=== PATIENT | male | born 1965 | race Caucasian/White ===

== ENCOUNTER 2024-06-27 11:34 | Outpatient (CLI) | payer MEDICARE, SELFPAY ==
[2024-06-27 12:41] LABS: Add Urine Microscopic? NO; Appearance Urine Clear (Clear); Bilirubin Urine Negative (Negative); Blood Urine Negative (Negative); Color Urine Yellow (Yellow); Glucose Urine UA 3+ mg/dL (Negative); Ketones Urine Negative (Negative); Leukocyte Esterase Ur Negative LEU/UL (Negative); Nitrate Urine Negative (Negative); Protein Urine Negative (Negative); Specific Grav Ur 1.018 (1.001-1.035); Urobilinogen Urine 0.2 mg/dL (<2.0); pH Urine 6.5 (5.0-9.0)
[2024-06-27 12:43] LABS: Hematocrit 51.8 % (42.0-52.0); Hemoglobin 17.2 g/dL (14.0-18.0); Mean Corpuscular HGB Conc 33.2 g/dl (32-36); Mean Corpuscular Hemoglobin 32.3 pg (26-34); Mean Corpuscular Volume 97.4 fl (80-100); Mean Platelet Volume 8.6 fl (7.4-10.4); Platelet Count Result 269 k/mm3 (150-375); Red Blood Count 5.32 M/mm3 (4.6-6.20); Red Cell Distribution Width 12.7 % (11.5-14.5); White Blood Count 8.5 K/mm3 (4.5-10.0)
[2024-06-27 12:55] LABS: Alanine Aminotransferase 34 U/L (6-50); Albumin Level 4.9 g/dL (3.5-5.1); Alkaline Phosphatase 90 U/L (38-126); Anion Gap 9 mmol/L (4-12); Aspartate Amino Transferase 27 U/L (17-59); Bilirubin,Total 0.8 mg/dL (0.2-1.3); Blood Urea Nitrogen 22 mg/dL (9-20); Calcium 9.4 mg/dL (8.4-10.2); Carbon Dioxide 26 mmol/L (22-30); Chloride 103 mmol/L (98-107); Cholesterol 144 mg/dL (0-200); Estimated Glomerular Filt Rate > 60; Glucose 108 mg/dL (65-110); HDL Direct 61 mg/dL; Potassium 4.2 mmol/L (3.4-5.0); Sodium 138 mmol/L (137-145); Triglycerides 155 mg/dL (<150); Uric Acid 3.1 mg/dL (3.5-8.5)
[2024-06-27 12:56] LABS: Hemoglobin A1C 5.8 % (<5.7)
--- OUTSIDE RECORDS SUMMARY | 2024-06-27 13:04 | XMS_ITS | Clinical Summary ---
Author Organization [facility] Address [address] [place] [address] Care Team Providers Care Mechanical Maintenance Name Role Phone Regino Rodgers MD Primary Care Provider Allergies Active Allergy Reactions Criticality Noted Date Comments Lisinopril Cough Low 03/04/2014 Medications amLODIPine (NORVASC) 10 mg tablet 2 Active allopurinoL (ZYLOPRIM) 100 mg tablet 2 Active atorvastatin (LIPITOR) 40 mg tablet atorvastatin 40 mg tablet TAKE 1 TABLET BY MOUTH DAILY Active aspirin (JESSICA CHEWABLE) 81 mg Tablet, Chewable aspirin 81 mg chewable tablet GLOVE MAKER 1 T PO QD Active diphenhydrAMINE -acetaminophen (Tylenol PM Extra Strength) 25-500 mg Tablet Active losartan (COZAAR) 50 mg tablet 100 mg. 2 Active hydrOXYzine pamoate (VISTARIL) 50 mg capsule hydroxyzine pamoate 50 mg capsule Active multivitamins-m inerals-lutein (Multivitamin 50 Plus) Tablet Acti ve pantoprazole (PROTONIX) 20 mg Tablet, Delayed Release (E.C.) pantoprazole 20 mg tablet,delayed release TAKE 1 TABLET BY MOUTH DAILY NEEDED 9 Active clopidogreL (PLAVIX) 75 mg Tablet clopidogrel 75 mg tablet TAKE 1 TABLET BY MOUTH DAILY 6 Active gabapentin (NEURONTIN) 300 mg capsule gabapentin 300 mg capsule 0 Active citalopram (CeleXA) 40 mg tablet citalopram 40 mg tablet Active Vascepa 1 gram Capsule 2 Active Vitamin D2 1,250 mcg (50,000 unit) capsule 2 Active fluticasone propionate (FLONASE) 50 mcg/spray Satartia, Suspension nasal inhaler Flonase Allergy Relief 50 mcg/actuation nasal spray,suspension Satartia 1 spray every day by intranasal route. 0 Active Active Problems Problem Noted Date Diagnosed Date Erythrocytosis 07/21/2021 Family History Medical History Relation Name Comments Multiple myeloma Father Relation Name Status Comments Brother 1 Alive Brother 2 Alive Father Mother Alive Sister Alive Social History Tobacco Use Types Packs/Day Years Used Date Smoking Tobacco: Every Day Cigarettes Smokeless Tobacco: Never Tobacco Cessation:Ready to Q uit: Not Asked; Counseling Given: Not Answered Alcohol Use Standard Drinks/Week Comments Yes 0 (1 standard drink = 0.6 oz pur e alcohol) Sex and Gender Information Value Date Recorded Sex Assigned at Not on file 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 Gender Identity Not on file Sexual Orientation Not on file Last Filed Vital Signs Vital Sign Reading Time Taken Comments Blood Pressure 175/91 07/12/2022 3:03 PM CDT Pulse 102 07/12/2022 3:01 PM CDT Temperature 36.7 C (98 F) 07/12/2022 3:01 PM CDT Respiratory Rate 12 07/12/2022 3:01 PM CDT Oxygen Saturation 97% 07/12/2022 3:01 PM CDT Inhaled Oxygen Concentration - - Weight 109.1 kg (240 lb 9.6 oz) 07/12/2022 3:01 PM CDT Height 180.3 cm (5' 11 ) 01/12/2022 3:25 PM CDT Body Mass Index 33.56 01/12/2022 3:25 PM CDT Plan of Treatment Health Maintenance Due Date Last Done Comments PNEUMOCOCCAL VACCINE 0-49 YEARS (1 of 2 - PCV) 972 DIABETES ANNUAL FOOT EXAM 05/15/1983 DIABETES ANNUAL RETINAL EXAM 05/15/1983 DIABETES HBA1C Q 6 MONTHS 05/15/1983 DIABETES MICROALBUMIN ANNUAL SCREEN 05/15/1983 DTAP/TDAP/TD VACCINES (1 - Tdap) 1984 HEPATITIS B VACCINES (1 of 3 - 19+ 3-dose series) 05/1984 COLORECTAL SCREENING 2010 Colorectal Cancer Screening 2010 FIT-DNA Q 3 years 2010 FIT/FOBT Q 1 year 2010 Flex Sig/CT Colonography Q 5 years 2010 ZOSTER VACCINE (1 of 2) 05/15/2015 LDL CHOLESTEROL ANNUAL 07/14/2022 07/14/2021 INFLUENZA VACCINE (#1) 2023 01/31/2021 Procedures Procedure Name Priority Date/Time Associated Diagnosis Comments LIPID PANEL Routine 07/14/2021 from Last 3 Months or Most Recently Relevant to Health Maintenance Results * LIPID PANEL (07/14/2021) Blood us Abstract Provider CHEMISTRY ORDERABLES Final Res ult from Last 3 Months or Most Recently Relevant to Health Maintenance Insurance [address] [address] Care Teams Mechanical Maintenance Relationship Specialty Start Date End Date Regino Rodgers MD PCP - General Internal Medicine 06/11/21
--- OUTSIDE RECORDS SUMMARY | 2024-06-27 13:04 | XMS_ITS ---
Author Organization [facility] Address [address] [place] [address] Care Team Providers Care Pottery Decorator Name Role Phone MendezDhirajIldefonso Unavailable [phone] Encounters Encounter Location Date Provider Diagnosis [facility] [place] [facility] [address] [place] [address] 03/28/2024 Ildefonso Mendez PLAN OF TREATMENT Next Appt Details Provider Name:Ildefonso Mendez , 07/06/2024 04:30:00 PM, [address], [facility], Progress Notes * YUSUF KEENANDOB:05/1965 (59 yo M)Acc No.[id number]:03/28/2024 Progress Notes Patient: YUSUF KEENAN Provider: MD AMINA, Soy.Antonio.C.P, F.A.S.N. :1965 Age:58 Y Sex:Male Date:03/28/2024 Address:[address] [address] Subjective: * Chief Complaints: * * Medical History: Objective: Assessment: Plan: * Treatment: * Billing Information: * Visit Code: * Procedure Codes: * Sign off status: Pending * Provider: MD AMINA, RiteshC.P, F.A.S.N. Date: 03/28/2024
--- OUTSIDE RECORDS SUMMARY | 2024-06-27 13:05 | XMS_ITS ---
Author Organization [facility] Address [address] [facility] [address] [facility] [address] [place] [address] Care Team Providers Care Field Administrator Name Role Phone Ildefonso Mendez Unavailable [phone] MEDICATIONS Medication SIG (Take, Route, Frequency, Duration) Notes Start Date End Date Status Losartan Potassium 100 MG TAKE 1 TABLET BY MOUTH DAILY for 100 days Active Vitamin D (Ergocalciferol) 1.25 MG (26781 UT) TAKE 1 CAPSULE BY MOUTH WEEKLY for 100 Active Allopurinol 100 MG TAKE 1 TABLET BY TAMMY TH ONCE DAILY for 100 Active Encounters Encounter Location Date Provider Diagnosis [place] [facility] [address] [facility] [address] [place] [address] 08/17/2023 Ildefonso Mendez Chronic kidney disea se, stage 3a N18.31 ; Essential hypertension I10 ; Hypercalcemia E83.52 ; Renal osteodystrophy N25.0 ; Secondary hyperparathyroidism, not elsewhere classified E21.1 and Hyperuricemia without signs of inflammatory arthritis and tophaceous disease E79.0 ASSESSMENTS Encounter Date Diagnosis Assessment Notes Treatment Notes Treatment Clinical Notes Section Notes 08/17/2023 Chronic kidney disease, stage 3a (ICD-10 - N18.31) 08/17/2023 Essential hypertension (ICD-10 - I10) 08/17/2023 Hypercalcemia (ICD-10 - E83.52) 08/17/2023 Renal osteodystrophy (ICD-10 - N25.0) 08/17/2023 Secondary hyperparathyroidism , not elsewhere classified (ICD-10 - E21.1) 08/17/2023 Hyperuricemia without signs of inflammatory arthritis and tophaceous disease (ICD-10 - E79.0) PLAN OF TREATMENT Next Appt Details Provider Name:Ildefonso Mendez , 07/06/2024 04:30:00 PM, [address] [facility], [facility] [address], [place], [address], Progress Notes * YUSUF KEENANDOB:05/1965 (59 yo M)Acc No.[id number]:08/17/2023 Progress Notes Patient: YUSUF KEENAN Provider: MD AMINA, Soy.Antonio.C.P, F.A.S.N. :1965 Age:58 Y Sex:Male Date:08/17/2023 Address:[address] [address] Subjective: * Chief Complaints: * * Medical History: * Medications: Taking Allopurinol 100 MG Tablet TAKE 1 TABLET BY MOUTH ONCE DAILY , Taking Losartan Potassium 100 MG Tablet TAKE 1 TABLET BY MOUTH DAILY , Taking Vitamin D (Ergocalciferol) 1.25 MG (03541 UT) Capsule TAKE 1 CAPSULE BY MOUTH WEEKLY Objective: Assessment: * Assessment: 1. Chronic kidney disease, stage 3a - N18.31 (Primary) 2. Essential hypertension - I10 3. Hypercalcemia - E83.52 4. Renal osteodystrophy - N25.0 5. Secondary hyperparathyroidism, not elsewhere classified - E21.1 6. Hyperuricemia without signs of inflammatory arthritis and tophaceous disease - E79.0 Plan: * Treatment: * Billing Information: * Visit Code: 79238 Office Visit, Est Pt., Level 4. * Procedure Codes: * Sign off status: Pending * Provider: MD AMINA, Soy.Antonio.C.P, F.A.S.N. Date: 08/17/2023
--- OUTSIDE RECORDS SUMMARY | 2024-06-27 13:05 | XMS_ITS | Patient Health Record ---
Author Organization [facility] Address [address] [facility] [address] [place] [address] Care Team Providers Care Corn Cutter Operator Name Role Phone Andrea Ildefonso Unavailable [phone] REASON FOR REFERRAL No Information MEDICATIONS Medication SIG (Take, Route, Frequency, Duration) Notes Start Date End Date Status Allopurinol 100 MG TAKE 1 TABLET BY TAMMY TH ONCE DAILY for 100 Active Vitamin D (Ergocalciferol) 1.25 MG (60590 UT) TAKE 1 CAPSULE BY MOUTH WEEKLY for 100 Active Losartan Potassium 100 MG TAKE 1 TABLET BY MOUTH DAILY for 100 days Active PROBLEMS Problem Type ICD Code Onset Dates Problem Status W/U Status Risk SNOMED Code Notes Problem Secondary hyperparathyroid ism, not elsewhere classified (E21.1) Active confirmed Secondary hyperparathyroidism (95397351) Problem Hyperuricemia without signs of inflammatory arthritis and tophaceous disease (E79.0) Active confirmed Hyperuricemi a without signs of inflammatory arthritis and tophaceous disease (945778439) Problem Hypercalcemia (E83.52) Active confirmed Hypercalcemia (67134225) Problem Renal osteodystrophy (N25.0) Active confirmed Renal osteodyst rophy (88869503) Problem Essential hypertension (I10) Active confirmed Essential hypertension (95820491) Problem Chronic kidney disease, stage 3a (N18.31) Active confirmed Chronic kidney disease stage 3A (disorder) (055022297) Encounters Encounter Location Date Provider Diagnosis [place] [facility] [address] [facility] [address] [place] [address] 08/17/2023 Ildefonso Mendez Chronic kidney disea se, stage 3a N18.31 ; Essential hypertension I10 ; Hypercalcemia E83.52 ; Renal osteodystrophy N25.0 ; Secondary hyperparathyroidism, not elsewhere classified E21.1 and Hyperuricemia without signs of inflammatory arthritis and tophaceous disease E79.0 [facility] [place] [facility] [address] [place], [place] [address] 03/28/2024 Ildefonso Mendez [place] [facility] [address] [facility] [address] [place] [address] 05/16/2024 Ildefonso Mendez ASSESSMENTS Encounter Date Diagnosis Assessment Notes Treatment [...] Name:Ildefonso Mendez , 07/06/2024 04:30:00 PM, [address], [facility] [address], [place], [address],
--- OUTSIDE RECORDS SUMMARY | 2024-06-27 13:05 | XMS_ITS ---
Author Organization [facility] Address [address] [facility] [address] [facility] [address] [place] [address] Care Team Providers Care Car Driver Name Role Phone AndreaDhirajIldefonso Unavailable [phone] Encounters Encounter Location Date Provider Diagnosis [place] [facility] [address] [facility] [address] [place] [address] 05/16/2024 Ildefonso Mendez PLAN OF TREATMENT Next Appt Details Provider Name:Ildefonso Mendez , 07/06/2024 04:30:00 PM, [address] [facility], [facility] [address], [place], [address], Progress Notes * YUSUF KEENANDOB:05/1965 (59 yo M)Acc No.[id number]:05/16/2024 Progress Notes Patient: YUSUF KEENAN Provider: MD AMINA, Soy.Antonio.C.P, F.A.S.N. :1965 Age:59 Y Sex:Male Date:05/16/2024 Address:[address] [address] Subjective: * Chief Complaints: * * Medical History: Objective: Assessment: Plan: * Treatment: * Billing Information: * Visit Code: * Procedure Codes: * Sign off status: Pending * Provider: MD AMINA, Frandy.C.P, F.A.S.N. Date: 05/16/2024
--- OUTSIDE RECORDS SUMMARY | 2024-06-27 13:05 | XMS_ITS | CONTINUITY OF CARE DOCUMENT ---
Author Name juan, juan Address Unknown Organization [facility] Address [address] [place] [address] Phone [phone] Care Team Providers Care Cns Name Role Phone Amparo KENDRICK, Anahi Allen Unavailable BOBBI KENDRICK, ALEXIS Unavailable BOBBI KENDRICK, ALEXIS Unavailable [phone] PROBLEMS Condition Status Date Provider Notes HTN essential active LEYDA RICE MD Hyperlipidemia active Anahi Christensen MD Family History of Hypertension: completed - Sa christiano Christensen MD Family History of Hypertension: completed - Sa christiano Christensen MD PAD - LLE with rest pain active Anahi galo MD PAD - LLE with claudication active Anahi Christensen MD 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 Anahi Christensen MD Hypertriglyceridemia completed - Anahi Christensen MD Hypercholesterolemia active Anahi mireles MD GERD active Anahi Christensen MD Obstructive sleep apnea active Anahi rodas MD Tobacco abuse active Anahi Christensen MD Hypertriglyceridemia active Anahi mireles MD Polycythemia active Anahi Christensen MD ENCOUNTERS Date Type Provider Location Encounter Diag nosis - In-person encounter Office Visit Anahi Christensen MD [facility] - [facility]-person encounter Office Visit Anahi Christensen MD [facility] Polycythemia - In-person encounter Office Visit Anahi Christensen MD [facility] - In-person encounter Office Visit Anahi Christensen MD [facility] - In-person encounter Office Visit Anahi Christensen MD [facility] Tobacco abuseHypertriglyceridemia - In-person encounter Office Visit Anahi Christensen MD [facility] Family History of Hypertension:Family History of Hypertension:Hypertriglyceridemi a - In-person encounter Office Visit Anahi Christensen MD [facility] - In-person encounter Office Visit Anahi Christensen MD [facility] - In-person encounter Office Visit LEYDA RICE MD [facility] - In-person encounter Office Visit LEYDA RICE MD [facility] - In-person encounter Office Visit LEYDA RICE MD [facility] - In-person encounter Office Visit Anahi Christensen MD [facility] Hyperlipidemia - In-person encounter Office Visit LEYDA RICE MD [facility] - In-person encounter Office Visit LEYDA RICE MD [facility] - In-person encounter Office Visit Anahi Christensen MD [facility] - In-person encounter Office Visit LEYDA RICE MD [facility] - In-person encounter Office Visit LEYDA RICE MD [facility] - In-person encounter Office Visit Anahi Christensen MD [facility] - In-person encounter Office Visit LEYDA RICE MD [facility] - In-person encounter Office Visit LEYDA RICE MD [facility] - In-person encounter Office Visit LEYDA RICE MD [facility] - In-person encounter Office Visit Anahi Christensen MD [facility] Obstructive sleep apnea - In-person encounter Office Visit LEYDA RICE MD [facility] - In-person encounter Office Visit LEYDA RICE MD [facility] - In-person encounter Office Visit LEYDA RICE MD [facility] - In-person encounter Office Visit LEYDA RICE MD [facility] - In-person encounter Office Visit Anahi Christensen MD [facility] - In-person encounter Office Visit LEYDA RICE MD [facility] - In-person encounter Office Visit LEYDA RICE MD [facility] - In-person encounter Office Visit LEYDA RICE MD [facility] - In-person encounter Office Visit Anahi Christensen MD [facility] PAD - LLE with rest painPAD - LLE with claudicationHTN heart and kidney disease w/o CHFHypercholesterolemiaGERD - In-person encounter Office Visit LEYDA RICE MD [facility] - In-person encounter Office Visit LEYDA RICE MD [facility] - In-person encounter Office Visit LEYDA RICE MD [facility] - In-person encounter Office Visit LEYDA RICE MD [facility] - In-person encounter Office Visit LEYDA RICE MD [facility] - In-person encounter Office Visit LEYDA RICE MD [facility] - In-person encounter Office Visit LEYDA RICE MD [facility] Hyperlipidemia - In-person encounter Office Visit LEYDA RICE MD [facility] - In-person encounter Office Visit LEYDA RICE MD [facility] HTN essential - In-person encounter Office Visit LEYDA RICE MD [facility] - In-person encounter Office Visit Daniel Escobar [facility] - In-person encounter Office Visit Daniel Escobar [facility] - In-person encounter Office Visit Daniel Escobar [facility] - In-person encounter Office Visit Daniel Escobar [facility] VITAL SIGNS Date Observation Value Provider Body Mass Index (Ratio) 33.36 kg/m2 Rene Wilkins blood pressure, diastolic 110 mm[Hg] Yareli nkLogzachary blood pressure, systolic 196 mm[Hg] Valencia kLogzachary blood pressure, diastolic 110 mm[Hg] St e[place] blood pressure, systolic 196 mm[Hg] Shaquille phanibambi [place] oxygen saturation, oximetry 97 % Selina Yang pulse rate 99 /min Selina allen respiratory rate E&M 16 /min Taj Yang weight E&M 246 [lb_av] Selina Munguia n height E&M 72 [in_i] Selina allen blood pressure, cuff size large St clari Yang Body Mass Index (Ratio) 33.63 kg/m2 Saud Christensen MD blood pressure, diastolic 98 mm[Hg] Li nkLogic blood pressure, systolic 185 mm[Hg] Valencia kLogic blood pressure, diastolic 98 mm[Hg] Sa ra Wheeler blood pressure, systolic 185 mm[Hg] Rene a Wheeler oxygen saturation, oximetry 98 % Nany Wheeler respiratory rate E&M 18 /min Nany Si ms pulse rate 109 /min Nany Wheeler blood pressure, cuff size regular Sa ra Wheeler weight E&M 248 [lb_av] Nany Wheeler height E&M 72 [in_i] Nany Wheeler Body Mass Index (Ratio) 32.82 kg/m2 Saud Christensen MD blood pressure, diastolic 81 mm[Hg] Keyona Hui blood pressure, systolic 161 mm[Hg] Homero Hui oxygen saturation, oximetry 98 % Santino Hui respiratory rate E&M 18 /min Helio Hui pulse rate 94 /min Santino turner weight E&M 242 [lb_av] Santino Masoud johnny blood pressure, cuff size regular Keyona Hui height E&M 72 [in_i] Santino Masoud johnny Body Mass Index (Ratio) 32.41 kg/m2 Saud Christensen MD blood pressure, diastolic 90 mm[Hg] Rh onda Dominique blood pressure, systolic 150 mm[Hg] Rho lorenzo Fox oxygen saturation, oximetry 98 % Paola Fox pulse rate 96 /min Paola Fox respiratory rate E&M 18 /min Paola Dominique blood pressure, resting Yes Tjn afua Fox blood pressure, cuff size regular Rh onafua Dominique weight E&M 239 [lb_av] Paola Dominique height E&M 72 [in_i] Paola Dominique Body Mass Index (Ratio) 32.28 kg/m2 Saud Christensen MD blood pressure, cuff size regular Cy wang Jose blood pressure, diastolic 80 mm[Hg] Cy nttreva Jose blood pressure, systolic 170 mm[Hg] Jazmine giselle Jose oxygen saturation, oximetry 98 % Anju Garcia pulse rate 112 /min Anju Campbel l respiratory rate E&M 16 /min Anju Jose weight E&M 238 [lb_av] Anju Campbel l height E&M 72 [in_i] Anju Campbel l Body Mass Index (Ratio) 29.16 kg/m2 Saud Christensen MD blood pressure, diastolic 84 mm[Hg] Gomez llreggie Hayes blood pressure, systolic 122 mm[Hg] Rashmi Hayes oxygen saturation, oximetry 97 % Avinash Hayes respiratory rate E&M 16 /min Avinash Hayes pulse rate 105 /min Avinash Hayes weight E&M 215 [lb_av] Avinash Hayes height E&M 72 [in_i] [place] Hayes Body Mass Index (Ratio) 30.38 kg/m2 Eze Plurad blood pressure, diastolic 90 mm[Hg] Ki lleen Hayes blood pressure, systolic 140 mm[Hg] Rashmi kaitlin Hayse oxygen saturation, oximetry 97 % Avinash Hayes respiratory rate E&M 16 /min Avinashreggie Hayes pulse rate 89 /min Avinashreggie Hayes weight E&M 224 [lb_av] Walnut Grovereggie Hayes blood pressure, resting Yes Nicho Hayes height E&M 72 [in_i] Avinash Hayes Body Mass Index (Ratio) 27.15 kg/m2 Eze Plurad blood pressure, diastolic 86 mm[Hg] Lucy Sims blood pressure, systolic 146 mm[Hg] Ashley Sims oxygen saturation, oximetry 98 % Blaire Sims respiratory rate E&M 18 /min Christelle Sims pulse rate 95 /min Blaire ndiaye weight E&M 200.2 [lb_av] Blaire hendrickson height E&M 72 [in_i] Blaire ndiaye Body Mass Index (Ratio) 26.20 kg/m2 Saud Christensen MD blood pressure, diastolic 83 mm[Hg] Lucy Sims blood pressure, systolic 155 mm[Hg] Ashley Sims oxygen saturation, oximetry 97 % Blaire Sims respiratory rate E&M 18 /min Christelle iSms pulse rate 89 /min Blaire ndiaye weight E&M 193.2 [lb_av] Blaire kelly height E&M 72 [in_i] Blaire ndiaye Body Mass Index (Ratio) 25.63 kg/m2 Saud Christensen MD blood pressure, diastolic 86 mm[Hg] Da luann Sammi blood pressure, systolic 140 mm[Hg] Dac ia Sammi oxygen saturation, oximetry 98 % Lorraine Sammi respiratory rate E&M 16 /min Lorraine V oss pulse rate 89 /min Lorraine Sammi weight E&M 189 [lb_av] Lorraine Sammi height E&M 72 [in_i] Lorraine Sammi Body Mass Index (Ratio) 28.21 kg/m2 Saud Christensen MD blood pressure, cuff size regular Ke rri Gruenejuan blood pressure, diastolic 85 mm[Hg] Ke rri Gruenenfelder blood pressure, systolic 152 mm[Hg] Martha ri Alida oxygen saturation, oximetry 96 % Shantell Alida respiratory rate E&M 16 /min Shantell zavaleta pulse rate 108 /min Shantell Roberta lder weight E&M 208 [lb_av] Shantell Yordye lder height E&M 72 [in_i] Shantell Yordye lder Body Mass Index (Ratio) 32.09 kg/m2 Saud Christensen MD blood pressure, diastolic 67 mm[Hg] Lucy Sims blood pressure, systolic 161 mm[Hg] Ashley Sims oxygen saturation, oximetry 99 % Blaire Sims respiratory rate E&M 18 /min Christelle Sims pulse rate 79 /min Blaire ndiaye weight E&M 236.6 [lb_av] Blaire Vincent on height E&M 72 [in_i] Blaire Kaure nson blood pressure, diastolic 80 mm[Hg] Ke rri Alida blood pressure, systolic 150 mm[Hg] Martha Alvarenganejuan pulse rate 73 /min Shantell Grerickanenfe lder oxygen saturation, oximetry 98 % Shantell Alida respiratory rate E&M 16 /min Shantell Segura waqar Body Mass Index (Ratio) 30.78 kg/m2 Sabina cortes Alida weight E&M 227 [lb_av] Shantell Yepeztawnyabambi rayoer blood pressure, diastolic 87 mm[Hg] Lucy Sims blood pressure, systolic 142 mm[Hg] Ashley Sims pulse rate 59 /min Blaire ndiaye oxygen saturation, oximetry 97 % Blaire Sims respiratory rate E&M 16 /min Christelle Sims Body Mass Index (Ratio) 30.32 kg/m2 Magdalena Sims weight E&M 223.6 [lb_av] Blaire kelly height E&M 72 [in_i] Blaire ndiaye ALLERGIES Allergy Name Onset Date Reaction Criticality Status LISINOPRIL cough cough Low Criticality active HISTORY OF MEDICATION USE Medication Status Instructions Dates Provider Indications Com ments citalopram 40 mg tablet active Anahi Christensen MD folic acid 1 mg tablet active Anahi Christensen MD Vascepa 1 gram capsule active TAKE 2 CAPSULES BY MOUTH 2 TIMES A DAY Anahi Christensen MD atorvastatin 40 mg tablet active TAKE 1 TABLET ONCE DAILY Santino Hui hydrochlorothiazide 12.5 mg tablet active TAKE 1 TABLET BY MOUTH ONCE DAILY 06/03 Yaya Asif hydrochlorothiazide 12.5 mg tablet completed Take 1 tablet by mouth once a day 10/15 - 06/03 Anahi Christensen MD VITAMIN D2 TABLET active Take 1 tablet once a week 07/11 Anju Garcia gabapentin 300 mg capsule active Take 1 tablet three times a day 07/11 Anju Garcia hydralazine 50 mg tablet completed Take 1 tablet once a day 07/11 - 05/21 Anahi Christensen MD gemfibrozil 600 mg tablet completed Take 1 tablet twice a day 07/11 - 07/24 Anju Garcia losartan 100 mg tablet active 1 tablet once a day 10/07 Anahi Christensen MD BENICAR 20 MG ORAL TABLET completed 1 tab daily 10/07 - 10/07 Magdalena Newman RN HYDROXYZINE HCL 50 MG ORAL TABLET completed 1 tab once daily - 08/16 Avinash Hayes MULTIVITAMINS CAPS active 1 tablet once a day Blaire Sims FISH OIL 1200 MG ORAL CAPSULE completed ONE DAILY - 07/11 Anju Garcia allopurinol 100 mg tablet active 1 tablet once a day Blaire Sims amlodipine 10 mg tablet active Take 1 tablet by mouth once a day 12/01 Paola Fox TYLENOL CAPSULE completed as needed 07/14 - 07/24 Shantell Irwin BENADRYL ALLERGY active as directed 07/14 Shantell Irwin Flonase Allergy Relief 50 mcg/actuation spray,suspension active as directed 07/14 hSantell Irwin FLOMAX 0.4 MG ORAL CAPSULE completed DAILY - 09/30 Shantell Irwin pantoprazole 20 mg tablet,delayed release (DR/EC) active Take 1 tablet by mouth once a day 10/16 Paola Coulter Chewable Aspirin 81 mg tablet,chewable active Take 1 once a day 09/28 Shantell Irwin VITAMIN D (ERGOCALCIFEROL) 49021 UNIT ORAL CAPSULE completed one pill every 2 weeks 09/28 - 09/30 Blaire Sims CALCITRIOL CAPSULE completed take one pill a day 09/28 - 09/30 Blaire Sims Celexa 40 mg tablet active 1 tablet onc e a day 06/25 Paola Fox PRILOSEC 20 MG ORAL CAPSULE DELAYED RELEASE completed ONE TABLET DAILY 07/01 - 09/30 Blaire Sims VITAMIN D (ERGOCALCIFEROL) 14543 UNIT ORAL CAPSULE completed once a week - 06/25 LEYDA RICE MD CALCITRIOL 0.25 MCG ORAL CAPSULE completed once daily - 06/25 LEYDA RICE MD CARDIZEMendel CD 180 MG ORAL CAPSULE EXTENDED RELEASE 24 HOUR completed ONE CAPSULE DAILY 06/25 - 09/30 Blaire Sims WELLBUTRIN SR 150 MG ORAL TABLET EXTENDED RELEASE 12 HOUR completed once daily - 09/30 Blaire Sims BUSPIRONE HCL 30 MG ORAL TABLET completed 2 pills a day 07/14 - 09/30 Blaire Sims Plavix 75 mg tablet active 1 tablet onc e a day Blaire Sims ASPIRIN 325 MG ORAL TABLET completed one tab daily - 06/25 LEYDA RICE MD CLOBETASOL PROPIONATE 0.05 % EXTERNAL OINTMENT completed APPLY LOCALLY NEEDED 08/19 - 11/25 LEYDA RICE MD VALSARTAN 160 MG ORAL TABLET completed ONE TABLET DAILY - 10/07 Nicky Ingram GEMFIBROZIL 600 MG ORAL TABLET completed ONE TABLET EVERY EVENING 06/25 - 09/30 Blaire Sims pravastatin 40 mg tablet completed Take 1 tablet once a day 05/05 - 07/24 Santino Hui OMEPRAZOLE 20 MG ORAL CAPSULE DELAYED RELEASE completed ONE TAB. DAILY 05/05 - 06/25 LEYDA RICE MD LOMOTIL 2.5-0.025 MG ORAL TABLET completed ONE TABLET EVERY 8 HOURS NEEDED 05/05 - 08/19 LEYDA RICE MD ATENOLOL 50 MG ORAL TABLET completed ONE TABLET DAILY - 09/30 Shantell Irwin SOCIAL HISTORY Date Observation Value Provider alcohol use no Anahi mireles MD social history reviewed E&M revi ewed - no changes required Anahi Christensen MD social history E&M S moking History: P atient currently smokes every day. P atient has been counseled to quit. Anahi Christensen MD smoking/tobacco cess ation, patient education and counseling yes Selina Yang number of years as a smoker 35 a Selina Trey smoking history, tot al pack/day 6 cigs Selina Yang cigarette use yes Selina cuenca smoking status Current every day smoker S nathaniel Yang alcohol use no Anahi mireles MD social history E&M S moking History: P atient currently smokes every day. P atient has been counseled to quit. Anahi Christensen MD smoking/tobacco cess ation, patient education and counseling yes Anahi Christensen MD smoking status Current every day smoker S libia Christensen MD social history reviewed E&M revi ewed - no changes required Anahi Christensen MD social history reviewed E&M revi ewed - no changes required Anahi Christensen MD smoking status Current every day smoker Carlos nadege Fox social history E&M S moking History: P atient currently smokes every day. P atient has been counseled to quit. Anahi Christensen MD social history reviewed E&M revi ewed - no changes required Anahi Christensen MD smoking/tobacco cess ation, patient education and counseling yes Anju Garcia number of years as a smoker 35 a Anju Jose smoking history, tot al pack/day 6 cigs Anju Garcia cigarette use yes Anju moore smoking status Current every day smoker Laurita kimberleychi Jose social history E&M S moking History: P atient currently smokes every day. P atient has been counseled to quit. Anahi Christensen MD social history reviewed E&M revi ewed - no changes required Anahi Christensen MD smoking/tobacco cess ation, patient education and counseling yes Avinash Hayes alcohol use no Avinash Hayes number of years as a smoker 35 a Avinash Hayes smoking history, tot al pack/day 6 cigs Avinash Hayes cigarette use yes Avinash Hayes smoking status Current every day smoker Moise vizcarra Hayes smoking status Current every day smoker S libia Christensen MD social history E&M S moking History: P atient currently smokes every day. P atient has been counseled to quit. Anahi Christensen MD social history reviewed E&M revi ewed - no changes required Anahi Christensen MD smoking/tobacco cess ation, patient education and counseling yes Avinash Hayes alcohol use no Avinash Hayes number of years as a smoker 35 a Avinash Hayes smoking history, tot al pack/day 6 cigs Avinash Hayes cigarette use yes Avinash Hayes social history reviewed E&M revi ewed - no changes required Anahi Christensen MD social history E&M S moking History: P atient currently smokes every day. P atient has been counseled to quit. Anahi Christensen MD smoking/tobacco cess ation, patient education and counseling yes Blaire Sims alcohol use no Blaire Davies senthil number of years as a smoker 35 a Blaire Levi smoking history, tot al pack/day 6 cigs Blaire Sims cigarette use yes Blaire hendrickson smoking status Current every day smoker Mendel talleyCharmaine Sims social history reviewed E&M revi ewed - no changes required Anahi Christensen MD social history E&M S moking History: P atient currently smokes every day. P atient has been counseled to quit. Anahi Christensen MD smoking/tobacco cess ation, patient education and counseling yes Blaire Sims alcohol use no Blaire Kaure nson number of years as a smoker 35 a Blaire Sims smoking history, tot al pack/day 6 cigs Blaire Sims cigarette use yes Blaire hendrickson smoking status Current every day smoker Mendel Sims social history reviewed E&M revi ewed - no changes required Corneliakurt Joshua [facility] social history E&M S moking History: P atient currently smokes every day. P atient has been counseled to quit. Cornelia Ventimiglia [employer] smoking/tobacco cess ation, patient education and counseling yes Lorraine Sammi alcohol use no Lorraine Sammi number of years as a smoker 35 a Lorraine Sammi smoking history, tot al pack/day 6 cigs Lorraine Sammi cigarette use yes Lorraine Sammi smoking status Current every day smoker D acia Sammi social history E&M S moking History: P atient currently smokes every day. P atient has been counseled to quit. Anahi Christensen MD social history reviewed E&M revi ewed - no changes required Anahi Christensen MD smoking status Current every day smoker Moise rojas Alida smoking/tobacco cess ation, patient education and counseling yes Anahi Christensen MD alcohol use no Anahi mireles MD number of years as a smoker 35 a Anahi Christensen MD smoking history, tot al pack/day 6 cigs Anahi Christensen MD cigarette use yes Anahi rojas MD social history reviewed E&M revi ewed - no changes required Anahi Christensen MD smoking/tobacco cess ation, patient education and counseling yes Blaire Sims alcohol use no Blaire Davies senthil number of years as a smoker 35 a Blaire Sims smoking history, tot al pack/day 6 cigs Blaire Sims cigarette use yes Blaire kelly smoking status Current every day smoker Mendel Sims social history E&M S moking History: Clifton stafford currently smokes every day. Anahi Christensen MD social history reviewed E&M revi ewed - no changes required Anahi Christensen MD smoking/tobacco cess ation, patient education and counseling Smoking and tobacco use cessation counseling visit; intensive and greater than 10 minutes Anahi Christensen MD alcohol use no Shantell allen smoking status Current every day smoker Moise rojas Alida number of grandchildren Anahi Christensen MD social history reviewed E&M revi ewed - no changes required Anahi Christensen MD number of years as a smoker 35 a Blaire Sims smoking history, tot al pack/day 6 cigs BlaireCatina Sims cigarette use yes Blaire kelly smoking status Current every day smoker Mendel Sims smoking/tobacco cess ation, patient education and counseling yes Blaire Sims FAMILY HISTORY Family Member Condition Mother Family History of Hy pertension: Father Family History of Hy pertension: INSURANCE PROVIDERS Payer name Policy type / Coverage type [place] [employer] party ID [employer] MEDICARE ADVANTAGE HMO-POS HMO [id number] ADVANCE DIRECTIVES Name Date DISCUSSED - NO DECISION MADE TREATMENT PLAN Date Name Performer [id number],Laurita,R [facility] BP 159/105 92 PULSE. Can't push his diuretics much more H is updated medication list for this problem includes: Hydrochlorothiazide 12.5 Mg Tablet (Hydrochlorothiazide) ..... Take 1 tablet by mouth once daily Losartan 50 Mg Tablet (Losartan) ..... 1 tablet once a day Amlodipine 10 Mg Tablet (Amlodipine) ..... Take 1 tablet by mouth once a day Marylin Chewable Aspirin 81 Mg Tablet,chewable (Aspirin) ..... Take 1 once a day Hydralazine 50 Mg Tablet (Hydralazine) ..... Take 1 tablet once a day BP today: 196/110 P rior BP: 185/98 (10/23/2021) Wendi Wilkins [id number],C, O n BiPAP.Still having apneic episoides. Needs to be seen by sleep specialist. Will refer to [facility]. February 15, 2018 S [facility] apnea machine modified by pulmonary. Pt. notes significant improvement in ROXANE sympto m May 21, 2022 T he patient is using CPAP on a regular basis. The patient has been benefiting from therapy and should continue use. Anahi Christensen MD [id number],C,R [facility] BP 159/105 92 PULSE H is updated medication list for this problem includes: Hydrochlorothiazide 12.5 Mg Tablet (Hydrochlorothiazide) ..... Take 1 tablet by mouth once daily Losartan 50 Mg Tablet (Losartan) ..... 1 tablet once a day Amlodipine 10 Mg Tablet (Amlodipine) ..... Take 1 tablet by mouth once a day Marylin Chewable Aspirin 81 Mg Tablet,chewable (Aspirin) ..... Take 1 once a day Hydralazine 50 Mg Tablet (Hydralazine) ..... Take 1 tablet once a day BP today: 196/110 P rior BP: 185/98 (10/23/2021) Anahi Christensen MD [id number],S,periodically gets blood removed. Anahi Christensen MD [id number],C, c old left foot. He had undergone AIF. Have been placed on IV heparin, had COMMUNITY HEALTH CONSULTANT a nd thrombectomy, and stenting of the distal SFA L eft stenting of the left SFA with a 7 x 60 Innova stent. 4 . COMMUNITY HEALTH CONSULTANT of the left peroneal, COMMUNITY HEALTH CONSULTANT of the left posterior tibial, and P TA of the left tibioperoneal trunk, all with a 4 x 80 mustang b alloon N ormal arterial flow of the left lower extremity with patent distal SFA to middle popliteal stent. ASHA's are normal bilaterally. n o plans for invasive workup July 11, 2020 P edward for noninvasive testing October 15, 2020 rowan lacy has asha 08/08/20 F INDINGS: R ight Lower Extremity: Triphasic waveforms are seen in the common femoral, profunda femoris, proximal femoral, mid femoral, d istal femoral, popliteal, anterior tibial and posterior tibial. L eft Lower Extremity: Triphasic waveforms are seen in the common femoral, profunda femoris, proximal femoral, mid femoral, d istal femoral, popliteal, anterior tibial and posterior tibial. - C ONCLUSIONS: 1 . Normal arterial flow of the lower extremities bilaterally with widely patent left stenting. h as sensilase 10/01 M ildly reduced PVR;s with normal perfusion pressures b/l. T his study is consistent with a fairly normal evaluation. October 23, 2021 i njured his left great toe, otherwise looks okay. Anahi Christensen MD [id number],C, L eft stenting of the left SFA with a 7 x 60 Innova stent. 4 . COMMUNITY HEALTH CONSULTANT of the left peroneal, COMMUNITY HEALTH CONSULTANT of the left posterior tibial, and P TA of the left tibioperoneal trunk, all with a 4 x 80 mustang b alloon. FINDINGS: R ight Lower Extremity: Triphasic waveforms are seen in the common femoral, profunda femoris, proximal femoral, mid femoral, d istal femoral, popliteal, anterior tibial and posterior tibial. L eft Lower Extremity: Triphasic waveforms are seen in the common femoral, profunda femoris, proximal femoral, mid femoral, d istal femoral, popliteal, anterior tibial and posterior tibial. - C ONCLUSIONS: 1 . Normal arterial flow of the lower extremities bilaterally with widely patent left stenting. Anahi Christensen MD [id number],C, H is updated medication list for this problem includes: Hydrochlorothiazide 12.5 Mg Tablet (Hydrochlorothiazide) ..... Take 1 tablet by mouth once daily Losartan 50 Mg Tablet (Losartan) ..... 1 tablet once a day Amlodipine 10 Mg Tablet (Amlodipine) ..... Take 1 tablet by mouth once a day Marylin Chewable Aspirin 81 Mg Tablet,chewable (Aspirin) ..... Take 1 once a day Hydralazine 50 Mg Tablet (Hydralazine) ..... Take 1 tablet once a day BP today: 185/98 P rior BP: 161/81 (07/24/2021) Anahi Christensen MD [id number],C, O n BiPAP.Still having apneic episoides. Needs to be seen by sleep specialist. Will refer to [facility]. February 15, 2018 S [facility] apnea machine modified by pulmonary. Pt. notes significant improvement in ROXANE sympto m Anahi Christensen MD [id number],C, H is updated medication list for this problem includes: Vascepa 1 Gram Capsule (Icosapent ethyl) Atorvastatin 40 Mg Tablet (Atorvastatin) ..... Take 1 tablet once daily Anahi Christensen MD [id number],C, H is updated medication list for this problem includes: Vascepa 1 Gram Capsule (Icosapent ethyl) Atorvastatin 40 Mg Tablet (Atorvastatin) ..... Take 1 tablet once daily Anahi Christensen MD [id number],C, T he Patient was reencouraged to stop smoking. Anahi Christensen MD [id number],C, c old left foot. He had undergone AIF. Have been placed on IV heparin, had [employer] a nd thrombectomy, and stenting of the distal SFA L eft stenting of the left SFA with a 7 x 60 Innova stent. 4 . [employer]ANT of the left peroneal, [employer] CONS[employer]ANT of the left posterior tibial, and P TA of the left tibioperoneal trunk, all with a 4 x 80 mustang b alloon N ormal arterial flow of the left lower extremity with patent distal SFA to middle popliteal stent. ASHA's are normal bilaterally. n o plans for invasive workup July 11, 2020 P edward for noninvasive testing October 15, 2020 rowan lacy has asha 08/08/20 F INDINGS: R ight Lower Extremity: Triphasic waveforms are seen in the common femoral, profunda femoris, proximal femoral, mid femoral, d istal femoral, popliteal, anterior tibial and posterior tibial. L eft Lower Extremity: Triphasic waveforms are seen in the common femoral, profunda femoris, proximal femoral, mid femoral, d istal femoral, popliteal, anterior tibial and posterior tibial. - C ONCLUSIONS: 1 . Normal arterial flow of the lower extremities bilaterally with widely patent left stenting. h as sensilase 10/01 M ildly reduced PVR;s with normal perfusion pressures b/l. T his study is consistent with a fairly normal evaluation. Anahi Christensen MD [id number],S, L eft stenting of the left SFA with a 7 x 60 Innova stent. 4 . [employer] CONS[employer]ANT of the left peroneal, [employer] CON[employer]ANT of the left posterior tibial, and P TA of the left tibioperoneal trunk, all with a 4 x 80 mustang b alloon. FINDINGS: R ight Lower Extremity: Triphasic waveforms are seen in the common femoral, profunda femoris, proximal femoral, mid femoral, d istal femoral, popliteal, anterior tibial and posterior tibial. L eft Lower Extremity: Triphasic waveforms are seen in the common femoral, profunda femoris, proximal femoral, mid femoral, d istal femoral, popliteal, anterior tibial and posterior tibial. - C ONCLUSIONS: 1 . Normal arterial flow of the lower extremities bilaterally with widely patent left stenting. Anahi Christensen MD [id number],S, w ill add hydrochlorthizide and see how he does for his bp he has checked it at home and its been in the 150s B P today: 150/90 P rior BP: 170/80 (07/11/2020) His updated medication list for this problem includes: Losartan 50 Mg Tablet (Losartan) ..... 1 tablet once a day Amlodipine 10 Mg Tablet (Amlodipine) ..... Take 1 tablet by mouth once a day Marylin Chewable Aspirin 81 Mg Tablet,chewable (Aspirin) ..... Take 1 once a day Hydralazine 50 Mg Tablet (Hydralazine) ..... Take 1 tablet once a day July 24, 2021 N o improvement with HCTZ noted. Has high salt diet consuming lots of fast food. Will give him RPM Anahi Christensen MD [id number],C, O n BiPAP.Still having apneic episoides. Needs to be seen by sleep specialist. Will refer to [facility]. February 15, 2018 S [facility] apnea machine modified by pulmonary. Pt. notes significant improvement in ROXANE sympto m Anahi Christensen MD [id number],S, C heck lipids. H is updated medication list for this problem includes: Pravastatin Sodium 20 Mg Oral Tablet (Pravastatin sodium) ..... One tab. daily Anahi Christensen MD [id number],C,w ill add hydrochlorthizide and see how he does for his bp he has checked it at home and its been in the 150s B P today: 150/90 P rior BP: 170/80 (07/11/2020) His updated medication list for this problem includes: Losartan 50 Mg Tablet (Losartan) ..... 1 tablet once a day Amlodipine 10 Mg Tablet (Amlodipine) ..... Take 1 tablet by mouth once a day Marylin Chewable Aspirin 81 Mg Tablet,chewable (Aspirin) ..... Take 1 once a day Hydralazine 50 Mg Tablet (Hydralazine) ..... Take 1 tablet once a day Anahi Christensen MD [id number],S, O n BiPAP.Still having apneic episoides. Needs to be seen by sleep specialist. Will refer to [facility]. February 15, 2018 S [facility] apnea machine modified by pulmonary. Pt. notes significant improvement in ROXANE sympto m Anahi Christensen MD [id number],S, Anahi rodas MD [id number],C, c old left foot. He had undergone AIF. Have been placed on IV heparin, had [employer] a nd thrombectomy, and stenting of the distal SFA L eft stenting of the left SFA with a 7 x 60 Innova stent. 4 . [employer] CONS[employer]ANT of the left peroneal, [employer] CONS[employer]ANT of the left posterior tibial, and P TA of the left tibioperoneal trunk, all with a 4 x 80 mustang b alloon N ormal arterial flow of the left lower extremity with patent distal SFA to middle popliteal stent. ASHA's are normal bilaterally. n o plans for invasive workup July 11, 2020 P edward for noninvasive testing October 15, 2020 h bambi has asha 08/08/20 F INDINGS: R ight Lower Extremity: Triphasic waveforms are seen in the common femoral, profunda femoris, proximal femoral, mid femoral, d istal femoral, popliteal, anterior tibial and posterior tibial. L eft Lower Extremity: Triphasic waveforms are seen in the common femoral, profunda femoris, proximal femoral, mid femoral, d istal femoral, popliteal, anterior tibial and posterior tibial. - C ONCLUSIONS: 1 . Normal arterial flow of the lower extremities bilaterally with widely patent left stenting. h as sensilase 10/01 M ildly reduced PVR;s with normal perfusion pressures b/l. T his study is consistent with a fairly normal evaluation. Anahi Christensen MD [id number],C, T he Patient was reencouraged to stop smoking. Anahi Christensen MD Cardiology:SARAYHCMoise B P 159/105 92 PULSE. Can't push his diuretics much more H is updated medication list for this problem includes: Hydrochlorothiazide 12.5 Mg Tablet (Hydrochlorothiazide) ..... Take 1 tablet by mouth once daily Losartan 50 Mg Tablet (Losartan) ..... 1 tablet once a day Amlodipine 10 Mg Tablet (Amlodipine) ..... Take 1 tablet by mouth once a day Marylin Chewable Aspirin 81 Mg Tablet,chewable (Aspirin) ..... Take 1 once a day Hydralazine 50 Mg Tablet (Hydralazine) ..... Take 1 tablet once a day BP today: 196/110 P rior BP: 185/98 (10/23/2021) Wendi Wilkins Cardiology: O n BiPAP.Still having apneic episoides. Needs to be seen by sleep specialist. Will refer to [facility]. February 15, 2018 S [facility] apnea machine modified by pulmonary. Pt. notes significant improvement in ROXANE sympto m May 21, 2022 T he patient is using CPAP on a regular basis. The patient has been benefiting from therapy and should continue use. Anahi Christensen MD Cardiology:RECEHCK B P 159/105 92 PULSE H is updated medication list for this problem includes: Hydrochlorothiazide 12.5 Mg Tablet (Hydrochlorothiazide) ..... Take 1 tablet by mouth once daily Losartan 50 Mg Tablet (Losartan) ..... 1 tablet once a day Amlodipine 10 Mg Tablet (Amlodipine) ..... Take 1 tablet by mouth once a day Marylin Chewable Aspirin 81 Mg Tablet,chewable (Aspirin) ..... Take 1 once a day Hydralazine 50 Mg Tablet (Hydralazine) ..... Take 1 tablet once a day BP today: 196/110 P rior BP: 185/98 (10/23/2021) Anahi Christensen MD Cardiology:periodically gets blo od removed. Anahi Christensen MD Cardiology: c old left foot. He had undergone AIF. Have been placed on IV heparin, had [employer] a nd thrombectomy, and stenting of the distal SFA L eft stenting of the left SFA with a 7 x 60 Innova stent. 4 . [employer] CONS[employer]ANT of the left peroneal, [employer] CONS[employer]ANT of the left posterior tibial, and P TA of the left tibioperoneal trunk, all with a 4 x 80 mustang b alloon N ormal arterial flow of the left lower extremity with patent distal SFA to middle popliteal stent. ASHA's are normal bilaterally. n o plans for invasive workup July 11, 2020 P edward for noninvasive testing & #13;October 15, 2020 h e has asha 08/08/20 F INDINGS: R ight Lower Extremity: Triphasic waveforms are seen in the common femoral, profunda femoris, proximal femoral, mid femoral, d istal femoral, popliteal, anterior tibial and posterior tibial. L eft Lower Extremity: Triphasic waveforms are seen in the common femoral, profunda femoris, proximal femoral, mid femoral, d istal femoral, popliteal, anterior tibial and posterior tibial. - C ONCLUSIONS: 1 . Normal arterial flow of the lower extremities bilaterally with widely patent left stenting. h as sensilase 10/01 M ildly reduced PVR;s with normal perfusion pressures b/l. T his study is consistent with a fairly normal evaluation. October 23, 2021 i njured his left great toe, otherwise looks okay. Anahi Christensen MD Cardiology: L eft stenting of the left SFA with a 7 x 60 Innova stent. 4 . [employer] CONS[employer]ANT of the left peroneal, COMM[employer] CONS[employer]ANT of the left posterior tibial, and P TA of the left tibioperoneal trunk, all with a 4 x 80 mustang b alloon. FINDINGS: R ight Lower Extremity: Triphasic waveforms are seen in the common femoral, profunda femoris, proximal femoral, mid femoral, d istal femoral, popliteal, anterior tibial and posterior tibial. L eft Lower Extremity: Triphasic waveforms are seen in the common femoral, profunda femoris, proximal femoral, mid femoral, d istal femoral, popliteal, anterior tibial and posterior tibial. - C ONCLUSIONS: 1 . Normal arterial flow of the lower extremities bilaterally with widely patent left stenting. Anahi Christensen MD Cardiology: H is updated medication list for this problem includes: Hydrochlorothiazide 12.5 Mg Tablet (Hydrochlorothiazide) ..... Take 1 tablet by mouth once daily Losartan 50 Mg Tablet (Losartan) ..... 1 tablet once a day Amlodipine 10 Mg Tablet (Amlodipine) ..... Take 1 tablet by mouth once a day Marylin Chewable Aspirin 81 Mg Tablet,chewable (Aspirin) ..... Take 1 once a day Hydralazine 50 Mg Tablet (Hydralazine) ..... Take 1 tablet once a day BP today: 185/98 P rior BP: 161/81 (07/24/2021) Anahi Christensen MD Cardiology: O n BiPAP.Still having apneic episoides. Needs to be seen by sleep specialist. Will refer to [facility]. February 15, 2018 S [facility] apnea machine modified by pulmonary. Pt. notes significant improvement in ROXANE sympto m Anahi Christensen MD Cardiology: H is updated medication list for this problem includes: Vascepa 1 Gram Capsule (Icosapent ethyl) Atorvastatin 40 Mg Tablet (Atorvastatin) ..... Take 1 tablet once daily Anahi Christensen MD Cardiology: H is updated medication list for this problem includes: Vascepa 1 Gram Capsule (Icosapent ethyl) Atorvastatin 40 Mg Tablet (Atorvastatin) ..... Take 1 tablet once daily Anahi Christensen MD Cardiology: T he Patient was reencouraged to stop smoking. Anahi Christensen MD Cardiology: c old left foot. He had undergone AIF. Have been placed on IV heparin, had [employer] a nd thrombectomy, and stenting of the distal SFA L eft stenting of the left SFA with a 7 x 60 Innova stent. 4 . COMM[employer] CONSULTANT of the left peroneal, COMM[employer] CONSULTANT of the left posterior tibial, and P TA of the left tibioperoneal trunk, all with a 4 x 80 mustang b alloon N ormal arterial flow of the left lower extremity with patent distal SFA to middle popliteal stent. ASHA's are normal bilaterally. n o plans for invasive workup July 11, 2020 P edward for noninvasive testing & #13;October 15, 2020 h e has asha 08/08/20 F INDINGS: R ight Lower Extremity: Triphasic waveforms are seen in the common femoral, profunda femoris, proximal femoral, mid femoral, d istal femoral, popliteal, anterior tibial and posterior tibial. L eft Lower Extremity: Triphasic waveforms are seen in the common femoral, profunda femoris, proximal femoral, mid femoral, d istal femoral, popliteal, anterior tibial and posterior tibial. - C ONCLUSIONS: 1 . Normal arterial flow of the lower extremities bilaterally with widely patent left stenting. h as sensilase 10/01 M ildly reduced PVR;s with normal perfusion pressures b/l. T his study is consistent with a fairly normal evaluation. Anahi Christensen MD Cardiology: L eft stenting of the left SFA with a 7 x 60 Innova stent. 4 . COMM[employer] CONSULTANT of the left peroneal, COMM[employer] CONSULTANT of the left posterior tibial, and P TA of the left tibioperoneal trunk, all with a 4 x 80 mustang b alloon. FINDINGS: R ight Lower Extremity: Triphasic waveforms are seen in the common femoral, profunda femoris, proximal femoral, mid femoral, d istal femoral, popliteal, anterior tibial and posterior tibial. L eft Lower Extremity: Triphasic waveforms are seen in the common femoral, profunda femoris, proximal femoral, mid femoral, d istal femoral, popliteal, anterior tibial and posterior tibial. - C ONCLUSIONS: 1 . Normal arterial flow of the lower extremities bilaterally with widely patent left stenting. Anahi Christensen MD Cardiology: w ill add hydrochlorthizide and see how he does for his bp he has checked it at home and its been in the 150s B P today: 150/90 P rior BP: 170/80 (07/11/2020) His updated medication list for this problem includes: Losartan 50 Mg Tablet (Losartan) ..... 1 tablet once a day Amlodipine 10 Mg Tablet (Amlodipine) ..... Take 1 tablet by mouth once a day Marylin Chewable Aspirin 81 Mg Tablet,chewable (Aspirin) ..... Take 1 once a day Hydralazine 50 Mg Tablet (Hydralazine) ..... Take 1 tablet once a day July 24, 2021 N o improvement with HCTZ noted. Has high salt diet consuming lots of fast food. Will give him RPM Anahi Christensen MD Cardiology: O n BiPAP.Still having apneic episoides. Needs to be seen by sleep specialist. Will refer to [facility]. February 15, 2018 S adrienne apnea machine modified by pulmonary. Pt. notes significant improvement in ROXANE sympto m Anahi Christensen MD Cardiology: C servando lipids. H is updated medication list for this problem includes: Pravastatin Sodium 20 Mg Oral Tablet (Pravastatin sodium) ..... One tab. daily Anahi Christensen MD Cardiology:will add hydrochlorthizide and see how he does for his bp he has checked it at home and its been in the 150s B P today: 150/90 P rior BP: 170/80 (07/11/2020) His updated medication list for this problem includes: Losartan 50 Mg Tablet (Losartan) ..... 1 tablet once a day Amlodipine 10 Mg Tablet (Amlodipine) ..... Take 1 tablet by mouth once a day Marylin Chewable Aspirin 81 Mg Tablet,chewable (Aspirin) ..... Take 1 once a day Hydralazine 50 Mg Tablet (Hydralazine) ..... Take 1 tablet once a day Anahi Christensen MD Cardiology: O n BiPAP.Still having apneic episoides. Needs to be seen by sleep specialist. Will refer to [facility]. February 15, 2018 S lee apnea machine modified by pulmonary. Pt. notes significant improvement in ROXANE sympto m Anahi Christensen MD Cardiology Anahi Christensen MD Cardiology: c old left foot. He had undergone AIF. Have been placed on IV heparin, had [employer] a nd thrombectomy, and stenting of the distal SFA L eft stenting of the left SFA with a 7 x 60 Innova stent. 4 . COMM[employer] CONS[employer]ANT of the left peroneal, COMM[employer] CONS[employer]ANT of the left posterior tibial, and P TA of the left tibioperoneal trunk, all with a 4 x 80 mustang b alloon N ormal arterial flow of the left lower extremity with patent distal SFA to middle popliteal stent. ASHA's are normal bilaterally. n o plans for invasive workup July 11, 2020 P edward for noninvasive testing & #13;October 15, 2020 h e has asha 08/08/20 F INDINGS: R ight Lower Extremity: Triphasic waveforms are seen in the common femoral, profunda femoris, proximal femoral, mid femoral, d istal femoral, popliteal, anterior tibial and posterior tibial. L eft Lower Extremity: Triphasic waveforms are seen in the common femoral, profunda femoris, proximal femoral, mid femoral, d istal femoral, popliteal, anterior tibial and posterior tibial. - C ONCLUSIONS: 1 . Normal arterial flow of the lower extremities bilaterally with widely patent left stenting. h as sensilase 10/01 M ildly reduced PVR;s with normal perfusion pressures b/l. T his study is consistent with a fairly normal evaluation. Anahi Christensen MD Cardiology: T he Patient was reencouraged to stop smoking. Anahi Christensen MD Cardiology follow up : O n BiPAP.Still having apneic episoides. Needs to be seen by sleep specialist. Will refer to [facility]. February 15, 2018 S leep apnea machine modified by pulmonary. Pt. notes significant improvement in ROXANE sympto m Anahi Christensen MD Cardiology follow up :The Patient was reencouraged to stop smoking. Anahi Christensen MD Cardiology follow up : c old left foot. He had undergone AIF. Have been placed on IV heparin, had [employer] a nd thrombectomy, and stenting of the distal SFA L eft stenting of the left SFA with a 7 x 60 Innova stent. 4 . COMM[employer] HE[employer] CONSULTANT of the left peroneal, COMM[employer] HE[employer] CONSULTANT of the left posterior tibial, and P TA of the left tibioperoneal trunk, all with a 4 x 80 mustang b alloon N ormal arterial flow of the left lower extremity with patent distal SFA to middle popliteal stent. ASHA's are normal bilaterally. n o plans for invasive workup July 11, 2020 P edward for noninvasive testing Anahi Christensen MD Cardiology follow up :No recent workup. Check echo, BP is elevated. Anahi Christensen MD Cardiology:followed by PCP H is updated medication list for this problem includes: Pravastatin Sodium 40 Mg Oral Tablet (Pravastatin sodium) ..... Take 1 tab once daily Anahi Christensen MD Cardiology: B P today: 122/84 P rior BP: 140/90 (02/15/2018) His updated medication list for this problem includes: Losartan Potassium 50 Mg Oral Tablet (Losartan potassium) ..... One tab daily Amlodipine Besylate 10 Mg Oral Tablet (Amlodipine besylate) ..... One tab. daily Marylin Low Dose 81 Mg Oral Tablet Chewable (Aspirin) ..... Take one pill a day Anaih Christensen MD Cardiology:Normal ar terial flow of the left lower extremity with patent distal SFA to middle popliteal stent. ASHA's are normal bilaterally. n o plans for invasive workup Anahi Christensen MD Cardiology: O rders: A rterial Duplex Bi-Lower EX (CPT-68829) Eze Real Cardiology:BP is mil dly elevated. May be related to smoking. Pt. is worred about getting dizzy and lightheaded. Will need to check BPs at home before considering adding HCTZ. Anahi Christensen MD Cardiology: O n BiPAP.Still having apneic episoides. Needs to be seen by sleep specialist. Will refer to [facility]. February 15, 2018 S [facility] apnea machine modified by pulmonary. Pt. notes significant improvement in ROXANE sympto m Anahi Christensen MD Cardiology:Mildly el evated creatine from before. LVEF is preserved. No symptoms. Anahi Christensen MD Cardiology: O n BiPAP.Still having apneic episoides. Needs to be seen by sleep specialist. Will refer to [facility]. Anahi Christensen MD Cardiology:Left sten ting of the left SFA with a 7 x 60 Innova stent. 4 . [employer] CONS[employer]ANT of the left peroneal, COMM[employer] HE[employer] CONSULTANT of the left posterior tibial, and P TA of the left tibioperoneal trunk, all with a 4 x 80 mustang b alloon. Anahi Christensen MD Cardiology:Check lip ids. H is updated medication list for this problem includes: Pravastatin Sodium 20 Mg Oral Tablet (Pravastatin sodium) ..... One tab. daily Anahi Christensen MD Cardiology Anahi Christensen MD Cardiology:Check ASHA Anahi galo MD Cardiology Anahi Christensen MD Cardiology: H is updated medication list for this problem includes: Marylin Low Dose 81 Mg Oral Tablet Chewable (Aspirin) ..... Take one pill a day Valsartan 160 Mg Oral Tablet (Valsartan) ..... One tablet daily Cardizem Cd 180 Mg Oral Capsule Extended Release 24 Hour (Diltiazem hcl coated beads) ..... One capsule daily Anahi Christensen MD Cardiology Anahi Christensen MD Cardiology: O n BiPAP.Still having apneic episoides. Needs to be seen by sleep specialist. Will refer to [facility]. Anahi Christensen MD Cardiology follow up : S table. Cornelia ROCHA Cardiology follow up : I mproved. Continue asa/plavix, smoking cessation advised. Cornelia ROCHA Cardiology follow up :On AutoPAP.. Not sleeping as well. States that machine is not functioning as well as it once was. Will set up with [employer]. Cornelia Joshua [facility] Cardiology:Check nuc lear stress test sine he has multiple risk factors for CAD and had peripheral arterial disease. No prior workup, will need nuclear lexiscan since cannot run on treadmill. H is updated medication list for this problem includes: Marylin Low Dose 81 Mg Oral Chew (Aspirin) ..... Take one pill a day Atenolol 50 Mg Tabs (Atenolol) ..... One tablet daily Valsartan 160 Mg Oral Tabs (Valsartan) ..... One tablet daily Cardizem Cd 180 Mg Oral [id number] (Diltiazem hcl coated beads) ..... One capsule daily Orders: S NOMED-CT: [id number] Current Medications Documented (SCT-[id number]) E KG (CPT-18420) Anahi Christensen MD Cardiology:BP is hig h today at 161/67. B Ps taken at home are better than here, may have whitecoat HTN. Anahi Christensen MD Cardiology Anahi Christensen MD Cardiology:Sensilase 07/21/15 R LE has normal evaluation L LE has PAD with mildly abnormal PVR's and mildly reduced perfusion which is sufficient for wound healing Anahi Christensen MD Cardiology Follow up : H is updated medication list for this problem includes: Marylin Low Dose 81 Mg Oral Chew (Aspirin) ..... Take one pill a day Atenolol 50 Mg Tabs (Atenolol) ..... One tablet twice daily Valsartan 160 Mg Oral Tabs (Valsartan) ..... One tablet twice daily Cardizem Cd 180 Mg Oral [id number] (Diltiazem hcl coated beads) ..... One capsule daily Anahi Christensen MD Cardiology Follow up :Improved. Continue asa/plavix, smoking cessation advised. Anahi Christensen MD Cardiology Follow up Anahi galo MD Cardiology: O rders: A rterial - SENSILASE (CPT-35271) A rterial Duplex Bi-Lower EX (CPT-15638) 9 9215 HIGH Complex (CPT-37414) S NOMED-CT: 08952463 Physical Exam, Performed: Pulse Exam of Foot (SCT-[id number]) S NOMED-CT: 504222451 Smoking Cessation Counseling ([facility]-[id number]) Anahi Christensen MD Cardiology:d/c omepr azole and start protonix with using plavix H is updated medication list for this problem includes: Protonix 20 Mg Tbec (Pantoprazole sodium) ..... One tab. daily Omeprazole 20 Mg Cpdr (Omeprazole) ..... One tab. daily Anahi Christensen MD Cardiology:s/p revas c will need to remain on asa/plavix for 90 days will change omeprzole to protonix O rders: A rterial - SENSILASE (CPT-21450) A rterial Duplex Bi-Lower EX (CPT-83745) 9 9215 HIGH Complex (CPT-63481) S NOMED-CT: 20033815 Physical Exam, Performed: Pulse Exam of Foot (SCT-[id number]) S NOMED-CT: 740342527 Smoking Cessation Counseling ([facility]-[id number]) Anahi Christensen MD Cardiology:has to st op either pravachol or gemfibrazole H is updated medication list for this problem includes: Gemfibrozil 600 Mg Tabs (Gemfibrozil) ..... One tab twice daily Pravastatin Sodium 20 Mg Tabs (Pravastatin sodium) ..... One tab. daily Anahi Christensen MD Cardiology:has to st op either pravachol or gemfibrazole H is updated medication list for this problem includes: Gemfibrozil 600 Mg Tabs (Gemfibrozil) ..... One tab twice daily Pravastatin Sodium 20 Mg Tabs (Pravastatin sodium) ..... One tab. daily Anahi Christensen MD Date Name EKG EKG RPM (remote patient monitoring) Arterial Duplex Bi-L ower EX Arterial - SENSILASE Complete Echo Arterial Duplex Bi-L ower EX STR - Nuclear HEPATIC FUNCTION SHARP EL LIPID PANEL Arterial Duplex Bi-L ower EX Sleep Study Titratio n Arterial Duplex Bi-L ower EX STR - Adenosine Carotid Duplex Bilat eral Complete Echo Arterial Duplex Bi-L ower EX Arterial - SENSILASE HISTORY OF PROCEDURES Procedure Date Procedure Name Provider Procedure Notes S tatus EKG Anahi Christensen MD completed EKG Anahi Christensen MD completed EKG Anahi Christensen MD completed EKG Anahi Christensen MD completed Cardiolite, 2 units Anahi rodas MD completed SPECT Images Sonja Fuller MD compl eted Stress EKG Sonja Fuller MD complet ed EKG Anahi Christensen MD completed EKG Anahi Christensen MD completed SNOMED-CT: [id number] Current Medications Documented Anahi Christensen MD completed EKG Anahi Christensen MD completed SNOMED-CT: 858127299 [id number] Current Medications Documented Anahi Christensen MD completed EKG Anahi Christensen MD completed SNOMED-CT: 463111082 [id number] Current Medications Documented Anahi Christensen MD completed EKG Anahi Christensen MD completed SNOMED-CT: [id number] [id number] Current Medications Documented Anahi Christensen MD completed EKG Anahi Christensen MD completed SNOMED-CT: 153178577 143461 Current Medications Documented Anahi Christensen MD completed SNOMED-CT: [id number] Smoking Cessation Counseling Anahi Christensen MD completed SNOMED-CT: [id number] Physical Exam, Performed: Pulse Exam of Foot Anahi Christensen MD completed SNOMED-CT: 102520312 [id number] Current Medications Documented Anahi Christensen MD completed
[2024-06-27 13:08] LABS: LDL Cholesterol Direct 54 mg/dL
[2024-06-27 13:09] LABS: Parathyroid Intact 23.9 pg/mL (14.5-75.2)
[2024-06-27 13:11] LABS: Creatinine Urine 41.1 mg/dL
[2024-06-27 13:15] LABS: MALB Creatinine Ratio 160.3 mg/g (0-30); Microalbumin Urine Random 65.9 mg/L (0-16.7)
[2024-06-27 13:18] LABS: Free T4 Free Thyroxine 0.86 ng/dL (0.78-2.19); Vitamin D 25 Hydroxy 65.3 ng/mL
== END 2024-06-27 11:35 | disposition home or self-care (01) ==
PROVIDERS: PCP Internal Medicine; Referring Provider Internal Medicine; Visit Provider Specialist
DX: E78.5 Hyperlipidemia, unspecified (principal); I12.9 Hypertensive chronic kidney disease with stage 1 through stage 4 chronic kidney disease, or unspecified chronic kidney disease; N18.30 Chronic kidney disease, stage 3 unspecified; E55.9 Vitamin D deficiency, unspecified; R35.0 Frequency of micturition; R73.09 Other abnormal glucose; E21.3 Hyperparathyroidism, unspecified; R94.6 Abnormal results of thyroid function studies
CPT/HCPCS: 36415; 80053; 80061; 81003; 82043; 82306; 83036; 83970; 84439; 84443; 84550; 85027

== ENCOUNTER 2025-02-11 10:16 | Outpatient (CLI) | payer MEDICARE, SELFPAY ==
[2025-02-11 11:04] LABS: Hematocrit 49.9 % (42.0-52.0); Hemoglobin 17.0 g/dL (14.0-18.0); Immature Granulocyte Percent A 0.5 % (0-0.5); Lymphocytes Absolute Auto 2.18 K/mm3 (0.9-3.2); Mean Corpuscular HGB Conc 34.1 g/dl (32-36); Mean Corpuscular Hemoglobin 32.6 pg (26-34); Mean Corpuscular Volume 95.8 fl (80-100); Nucleated Red Blood Cells Absolute Auto 0.000 K/mm3 (0.0-0.012); Nucleated Red Blood Cells Perc 0.0 % (0.0-0.2); Platelet Count Result 303 k/mm3 (150-375); Red Blood Count 5.21 M/mm3 (4.6-6.20); White Blood Count 7.3 K/mm3 (4.5-10.0)
[2025-02-11 11:10] LABS: Hemoglobin A1C 5.7 % (<5.7)
[2025-02-11 11:11] LABS: Add Urine Microscopic? YES; Appearance Urine Clear (Clear); Glucose Urine UA 3+ mg/dL (Negative); Leukocyte Esterase Ur Negative LEU/UL (Negative); Nitrate Urine Negative (Negative); Non Pathogenic Casts 0-2; Specific Grav Ur 1.023 (1.001-1.035)
[2025-02-11 11:17] LABS: Total Protein Urine Random 18 mg/dL
[2025-02-11 11:23] LABS: MALB Creatinine Ratio 106.7 mg/g (0-30)
[2025-02-11 11:26] LABS: Alanine Aminotransferase 34 U/L (6-50); Albumin Level 4.8 g/dL (3.5-5.1); Alkaline Phosphatase 103 U/L (38-126); Anion Gap 7 mmol/L (4-12); Aspartate Amino Transferase 37 U/L (17-59); Bilirubin,Total 0.5 mg/dL (0.2-1.3); Blood Urea Nitrogen 17 mg/dL (9-20); Calcium 9.3 mg/dL (8.4-10.2); Carbon Dioxide 24 mmol/L (22-30); Chloride 106 mmol/L (98-107); Cholesterol 152 mg/dL (0-200); Estimated Glomerular Filt Rate > 60; Glucose 110 mg/dL (65-110); HDL Direct 51 mg/dL; Potassium 4.4 mmol/L (3.4-5.0); Sodium 137 mmol/L (137-145); Total Protein 7.8 g/dL (6.3-8.2); Triglycerides 308 mg/dL (<150); Uric Acid 3.7 mg/dL (3.5-8.5)
[2025-02-11 11:37] LABS: Parathyroid Intact 39.9 pg/mL (14.5-75.2)
[2025-02-11 11:42] LABS: Free T4 Free Thyroxine 0.87 ng/dL (0.78-2.19)
--- OUTSIDE RECORDS SUMMARY | 2025-02-11 11:42 | XMS_ITS | Clinical Summary ---
[facility] Organization [facility] Address [address] [place] [address] Care Team Providers Care Family Development Extension Specialist Name Role Phone Regino Rodgers MD Primary [...] Tablet, Chewable aspirin 81 mg chewable tablet CULINARY MANAGER 1 T PO QD Active diphenhydrAMINE -acetaminophen [...] 2 Active fluticasone propionate (FLONASE) 50 mcg/spray [place], Suspension nasal inhaler Flonase Allergy Relief 50 mcg/actuation nasal spray,suspension [place] 1 spray every day by intranasal route. [...] on file Legal Sex Male 9:30 AM [employer] Gender Identity Not on file Sexual Orientation [...] 3:01 PM CDT Height 180.3 cm (5' 11) 01/12/2022 3:25 PM CDT Body Mass Index 33.56 01/12/2022 3:25 PM CDT Plan of Treatment Health Maintenance Due Date Last Done Comments DIABETES ANNUAL FOOT EXAM 05/15/1983 DIABETES ANNUAL RETINAL EXAM 05/15/1983 DIABETES HBA1C Q 6 MONTHS 05/15/1983 DIABETES MICROALBUMIN ANNUAL SCREEN 05/15/1983 DTAP/TDAP/TD VACCINES (1 - Tdap) 1984 HEPATITIS B VACCINES (1 of 3 - 19+ 3-dose series) 1984 COLORECTAL SCREENING 2010 Colorectal Cancer Screening 2010 FIT-DNA Q 3 years 2010 FIT/FOBT Q 1 year 2010 Flex Sig/CT Colonography Q 5 years 2010 ZOSTER VACCINE (1 of 2) 05/15/2015 LDL CHOLESTEROL ANNUAL 07/14/2022 07/14/2021 INFLUENZA VACCINE (#1) 2024 , 01/31/2021, 01/01/2021, Additional history exists COVID-19 Vaccine (6 - 2024-2 6 season) 2024 12/24/2021, 01/31/2021, 01/01/2021, Additional history exists Procedures Procedure Name Priority Date/Time Associated Diagnosis Comments LIPID PANEL Routine 07/14/2021 from Last 3 Months or Most Recently Relevant to Health Maintenance Results * LIPID PANEL (07/14/2021) Blood us Abstract Provider CHEMISTRY ORDERABLES Final Res ult from Last 3 Months or Most Recently Relevant to Health Maintenance Insurance [id number] [id number] Care Teams Family Development Extension Specialist Relationship Specialty Start Date End Date Regino Rodgers MD PCP - General Internal Medicine 06/11/21
[2025-02-11 12:03] LABS: Prostate Specific Antigen 1.0 ng/mL (< OR = 4.0); Thyroid Stimulating Hormone 1.540 uIU/mL (0.465-4.680)
[2025-02-13 10:09] LABS: Chloride, Urine 116 mmol/L (Not Estab.)
[2025-02-14 13:08] LABS: Osmolality, Urine 634 mOsmol/kg (.)
== END 2025-02-11 10:17 | disposition home or self-care (01) ==
PROVIDERS: PCP Internal Medicine; Referring Provider Internal Medicine; Visit Provider Specialist
DX: E78.5 Hyperlipidemia, unspecified (principal); N18.30 Chronic kidney disease, stage 3 unspecified; E11.65 Type 2 diabetes mellitus with hyperglycemia; E21.3 Hyperparathyroidism, unspecified; E55.9 Vitamin D deficiency, unspecified; R82.90 Unspecified abnormal findings in urine; N39.0 Urinary tract infection, site not specified; R35.0 Frequency of micturition
CPT/HCPCS: 36415; 80053; 80061; 81001; 81050; 82043; 82306; 82436; 82570; 83036; 83935; 83970; 84133; 84153; 84156; 84300; 84439; 84443; 84550; 85025